=== PATIENT | male | born 1975 | race Caucasian/White ===

== ENCOUNTER → 2017-06-29 | Day surgery (SDC) | payer BC ==
[~2017-06-29] MED LIST: ADVAIR HFA 230-28 GM; CIPRO PO; FLEXERIL10 MG PO; FLOVENT7.9 GM 44 INH; HYDROCODONE-APA1 T42 PO; LANSOPRAZOLE30 M2 PO; NEXIUM PO; NO MEDICATIONS; OMEPRAZOLE40 M1 PO; OMEPRAZOLE40 MG PO; PROTONIX PO
--- NOTE | ~2017-06-29 | OR ---
Unit #: [id number] #: [id number] Patient: LUKE BEAR JR [id number] [address] [place], [place] [address] [id number] O MR#: [id number] NAME: LUKE BEAR JR ROOM: Date of Procedure: 06/29/2017 Admission Date: 06/29/2017 Surgeon: Paul Ballard M.D. : 1975 Attending Physician: Paul Ballard M.D. Primary Care Physician: Randall Galeano M.D. OPERATIVE REPORT PREOPERATIVE DIAGNOSES History of dysphagia, gastroesophageal reflux, history of eosinophilic esophagitis. PROCEDURES PERFORMED Upper gastrointestinal endoscopy and biopsies as well as biopsies from the antrum. POSTOPERATIVE DIAGNOSES The examination is completely normal. Biopsies were obtained from the distal esophagus for histology. In addition, a biopsy was also obtained from the antrum for CLOtest. SEDATION USED MAC. DESCRIPTION OF PROCEDURE Following detailed explanation of potential risks and complications of an upper endoscopy, namely perforation, bleeding, and complication related to sedation, the patient was brought to GI lab and laid in the left lateral decubitus position. Lubricated tip of the Olympus video upper endoscope was passed through the bite block into the proximal esophagus under direct vision. The entire esophageal mucosa was examined and appeared normal. Z-line was nicely demarcated, there being no esophagitis or hiatus hernia. No stricture was noted. The scope was then advanced into the gastric cavity and the latter was insufflated. Mucosa of the fundus, body, and antrum was examined and appeared unremarkable. Pylorus was intubated with visualization of the normal duodenal bulb and second and third part of the duodenum. Upon withdrawal and retroflexion; incisura, cardia, and greater curve was examined and biopsy was obtained from the antrum for CLOtest. The scope was then withdrawn in the distal esophagus. Biopsies were obtained from the distal esophagus from the squamocolumnar junction and sent for histology. The entire esophageal mucosa was examined all the way up to pharynx, no additional findings were noted. The patient tolerated the procedure without any postprocedure complications. Dictated by... Jose Cruz Owen/stephanyl Unit #: [id number] #: [id number] Patient: LUKE BEAR JR TD: 06/29/2017 15:46 JOB #: [id number] CC: Randall Galeano M.D. OPERATIVE REPORT Page 1 of 1 X Paul Ballard MD PROCEDURE OPERATIVE NOTE
== END | disposition home or self-care (01) ==
LOC: COPS 07:21
DX: K21.0 Gastro-esophageal reflux disease with esophagitis (principal); K22.70 Barrett's esophagus without dysplasia; Z79.899 Other long term (current) drug therapy; I65.09 Occlusion and stenosis of unspecified vertebral artery; Z87.442 Personal history of urinary calculi; Z98.890 Other specified postprocedural states
CPT/HCPCS: 87077; 88305; J2250